=== PATIENT | female | born 1975 | race Caucasian/White ===

== ENCOUNTER 2018-07-30 20:05 | Emergency (ER) | payer MEDICAID, OTHER ==
[~2018-07-30] VITALS: Ht 160 cm; Wt 76.4 kg
[2018-07-30 20:09] VITALS: Ht 160 cm; Wt 76.4 kg
[2018-07-30] MEDS ORDERED: KETOROLAC 60 MG INJ IM STA (21:28)
[2018-07-30] MEDS ORDERED: LORAZEPAM 2 MG INJ IM ONE (21:30)
[2018-07-30] MEDS ORDERED: CYCLOBENZAPRINE 10 MG TAB PO ONE (21:30)
[2018-07-30] MEDS ORDERED: KETOROLAC 30 MG INJ IV STA (22:12)
[2018-07-30] MEDS ORDERED: SOD CHLORIDE 0.9% 1,000 ML IV ONE (22:30)
--- NOTE | 2018-07-30 22:51 | ERD ---
ER Documentation Chief Complaint Chief Complaint R SIDE OF BODY SWELLING/ NUMB X'S 2 DAYS HPI History of Present Illness: 43-year-old female with a past medical history of migraine and prediabetes coming in today with complaint of swelling and numbness to the right side of her body that is been present for 2 days. associated sympto ms includes pain to the right side of body. Patient denies nausea, vomiting, headache, altered mental status, paralysis, weakness. Patient reports an episode at approximately 1300 today in which she experienced heart racing and broke into a cold sweat; denies nausea, vomiting, dizziness during this episode. Patient reports that she later that day went to check her blood pressure and her systolic blood pressure was 190s. Patient reports that she is under a lot of stress at home. At home pharmacological/nonpharmacological treatment for symptoms: Denies Denies social concerns; Denies recent foreign travel ROS All systems reviewed and are negative except as per history of present illness. Medications Home Meds Active Scripts Nitrofurantoin Monohyd Macrocr* (Macrobid*) 100 Mg Capsr, 100 MG PO BID for URINE INFECTION for 7 Days, CAP Prov:AUGUSTIN SARABIA NP 07/31/18 Naproxen* (Naprosyn*) 500 Mg Tablet, 500 MG PO BID PRN for PAIN AND/OR INFLAMMATION, #30 TAB Prov:AUGUSTIN SARABIA NP 07/31/18 Cyclobenzaprine Hcl* (Cyclobenzaprine Hcl*) 10 Mg Tablet, 10 MG PO Q8 PRN for MUSCLE SPASM/MUSCLE TENSION, #30 TAB Prov:AUGUSTIN SARABIA NP 07/31/18 Lorazepam* (Lorazepam*) 1 Mg Tablet, 1 MG PO Q12, #10 TAB Take 1/2 to 1 pill for anxiety/tension. Prov:AUGUSTIN SARABIA NP 07/31/18 Allergies Allergies: Coded Allergies: ampicillin (Verified Allergy, Unknown, 07/30/18) ceftriaxone (Verified Allergy, Unknown, 09/26/13) lidocaine (Verified Allergy, Unknown, 09/26/13) PMhx/Soc History of Surgery: Yes ([facility]) Anesthesia Reaction: No Hx Neurological Disorder: No Hx Respiratory Disorders: No Hx Cardiac Disorders: No Hx Psychiatric Problems: No Hx Miscellaneous Medical Probl: No Hx Alcohol Use: Yes (STOPPED 2 YRS BEFORE) Hx Substance Use: No Hx Tobacco Use: No Smoking Status: Never smoker FmHx Family History: diabetes Physical Exam Vitals Vital Signs Date Temp Pulse Resp B/P (MAP) Pulse Ox O2 O2 Flow FiO2 Time Delivery Rate 07/31/18 98.1 60 14 121/71 98 Room Air 03:30 (88) 07/30/18 98.1 22:56 07/30/18 62 15 161/75 100 Room Air 22:54 (103) 07/30/18 98.5 84 18 168/95 98 20:09 (119) Physical Exam Const: No acute distress, afebrile Head: Atraumatic Eyes: Normal Conjunctiva ENT: Normal External Ears, Nose and Mouth. Neck: Full range of motion. No meningismus. Resp: Clear to auscultation bilaterally Cardio: Regular rate and rhythm, no murmurs Abd: Soft, non tender, non distended. No guarding, no masses, no rigidity Skin: No petechiae or rashes Back: No midline or flank tenderness; tenderness to palpation to right tra pezius Ext: No cyanosis, or edema; no swelling noted Neur: Awake and alert x3, speaking in clear sentences, no focal deficits or facial asymmetry; patient reporting decreased sensation to all extremities, but more particularly to right arm, right leg Psych: Normal Mood and Affect Result Diagram: 07/30/18215207/30/182152 Results 24 hrs Laboratory Tests Test 07/30/18 21:49 07/30/18 21:53 07/31/18 01:03 POC Beta HCG, Qualitative NEGATIVE White Blood Count 8.5 10^3/ul Red Blood Count 4.38 10^6/ul Hemoglobin 12.9 g/dl Hematocrit 37.6 % Mean Corpuscular Volume 85.8 fl Mean Corpuscular Hemoglobin 29.5 pg Mean Corpuscular 34.3 g/dl Hemoglobin Concent Red Cell Distribution Width 12.6 % Platelet Count 228 10^3/UL Mean Platelet Volume 10.2 fl Immature Granulocytes % 0.100 % Neutrophils % 57.0 % Lymphocytes % 35.1 % Monocytes % 5.9 % Eosinophils % 1.4 % Basophils % 0.5 % Nucleated Red Blood Cells % 0.0 /100WBC Immature Granulocytes # 0.010 10^3/ul Neutrophils # 4.8 10^3/ul Lymphocytes # 3.0 10^3/ul Monocytes # 0.5 10^3/ul Eosinophils # 0.1 10^3/ul Basophils # 0.0 10^3/ul Nucleated Red Blood Cells # 0.0 10^3/ul Urine Color YELLOW Urine Clarity SLIGHTLY CLOUDY Urine pH 7.0 Urine Specific Josephine 1.024 Urine Ketones NEGATIVE mg/dL Urine Nitrite NEGATIVE mg/dL Urine Bilirubin NEGATIVE mg/dL Urine Urobilinogen NEGATIVE mg/dL Urine Leukocyte Esterase 2+ Josi/ul Urine Microscopic RBC 3 /HPF Urine Microscopic WBC 24 /HPF Urine Squamous Epithelial Cells FEW /HPF Urine Mucus FEW /HPF Urine Hemoglobin NEGATIVE mg/dL Urine Glucose NEGATIVE mg/dL Urine Total Protein NEGATIVE mg/dl Sodium Level 141 mmol/L Potassium Level 3.6 mmol/L Chloride Level 104 mmol/L Carbon Dioxide Level 25 mmol/L Anion Gap 12 Blood Urea Nitrogen 9 mg/dl Creatinine 0.55 mg/dl Est Glomerular Filtrat > 60 mL/min Rate mL/min Glucose Level 105 mg/dl Calcium Level 9.7 mg/dl Troponin I < 0.012 ng/ml Current Medications Medications Dose Sig/Carlos Start Time Status Last (Trade) Ordered Route PRN Stop Time Admin Dose Reason Admin Lorazepam 1 mg ONCE ONCE 07/30/18 DC (Ativan) IM 21:30 07/30/18 21:32 10 mg ONCE ONCE 07/30/18 DC 07/30/18 Cyclobenzapri PO 21:30 22:42 ne HCl 07/30/18 21:32 (Flexeril) Ketorolac 60 mg ONCE STAT 07/30/18 DC Tromethamine IM 21:28 (Toradol) 07/30/18 22:14 Ketorolac 30 mg ONCE STAT 07/30/18 DC 07/30/18 Tromethamine IV 22:12 22:42 (Toradol) 07/30/18 22:14 Sodium 1,000 ml @ Q1H ONCE 07/30/18 DC 07/30/18 Chloride 1,000 mls/hr IV 22:30 22:38 07/30/18 23:29 Lorazepam 1 mg ONCE ONCE 07/30/18 DC 07/30/18 (Ativan) IV 23:00 22:48 07/30/18 23:01 100 mg ONCE ONCE 07/30/18 DC 07/30/18 Nitrofurantoi PO 23:00 23:13 n 07/30/18 23:01 Macrocrystals (Macrobid) Procedures/MDM ED course includes a thorough examination and history. Medications: Ketorolac, cyclobenzaprine, Ativan Imaging: EKG Labs: CBC, CMP, urinalysis, urine , troponin Patient reassessment at 2210: Patient appears to have experienced a vasovagal episode during blood draw. Patient reports that this has occurred to her before during blood collection. Within minutes patient's vital signs are hemodynamically stable and within normal limits. Orders placed for IV NS. Route of administration change for ketorolac. Verbal orders to nurse to hold Lorazepam and cyclobenzaprine. Patient reassessment at 2245: No signs of acute distress. Patient hemodynamically stable. Okay nurse to give lorazepam and cyclobenzaprine. Ativan administration change from IM to IV, to prevent another vasovagal episode. Currently awaiting other blood testing results. Urinalysis showing UTI, orders placed for Macrobid. Low suspicion for life-threatening medical emergency. Low suspicion for cardiopulmonary emergency. Low suspicion for neurological emergency. Otherwise healthy patient presenting with constellation of symptoms likely representing muscle spasm/anxiety/stress as characterized by history, physical exam findings, imaging findings, lab findings. CBC: no e/o of systemic infection or severe anemia. CMP: no e/o severe acidosis, alkalosis, renal failure, diabetic ketoacidosis, liver disease. Urinalysis with 2+ leukocyte esterase, 24 WBCs. EKG @ 2155: Rate/Rhythm: Normal Sinus Rhythm, ventricular rate 63 QRS, ST, T-waves: No changes consistent w/ acute ischemia Impression: No evidence of ischemia or arrhythmia Patient reassessment 0000: Patient hemodynamically stable. Patient reports significant decrease in pain. Patient reports feeling much better without any type of right-sided numbness. no respiratory distress, otherwise relatively well appearing and nontoxic. Disposition given. Patient educated on diagnoses, prescriptions, follow-up care, return precautions. Strict return precautions given for worsening condition; questions answered discharge. 0103: Lab called to get status of troponin. Troponin reran. Troponin negative. Disposition for discharge with followup in 2 days with PCP/clinic. Departure Diagnosis: Primary Impression: Anxiety Additional Impressions: Muscle spasm Stress at home Urinary tract infection Urinary tract infection type: site unspecified Hematuria presence: with hematuria Qualified Codes: N39.0 - Urinary tract infection, site not specified; R31.9 - Hematuria, unspecified Condition: Stable AUGUSTIN SARABIA NP Jul 30, 2018 22:51
[2018-07-30] MEDS ORDERED: NITROFURANTOIN (SR) 100 MG CAP PO ONE (23:00)
[2018-07-30] MEDS ORDERED: LORAZEPAM 2 MG INJ IV ONE (23:00)
[2018-07-31] MEDS ORDERED: LORA1TAB PO (00:08)
[2018-07-31] MEDS ORDERED: CYCL10TA7 PO (00:08)
[2018-07-31] MEDS ORDERED: NAPR-985 PO (00:08)
[2018-07-31] MEDS ORDERED: NITR-58 PO (00:09)
[2018-07-31 03:30] VITALS: BP 121/71; PULSE 60; RESP 14
== END 2018-07-31 03:21 | disposition home or self-care (01) ==
LOC: FTE 20:05
DX: M62.838 Other muscle spasm (principal); N39.0 Urinary tract infection, site not specified; F43.9 Reaction to severe stress, unspecified; F41.9 Anxiety disorder, unspecified
CPT/HCPCS: 36415; 80048; 81001; 81025; 84484; 85025; 93005; 96361; 96372; 96374; J1885; J2060; J7030; Z7502; Z7610